=== PATIENT | male | born 1980 | race Caucasian/White ===

== ENCOUNTER 2017-10-27 17:51 | Emergency (ER) | payer OTHER ==
[~2017-10-27] VITALS: Ht 185.4 cm; Wt 77.1 kg
[~2017-10-27 17:51] MED LIST: AMOXICILLIN875 MG PO; IBUPROFEN 800800 MG PO; NOHOMEMEDICATIONS; NORCO 5-325 TA1 EACH PO; TRAMADOL 50 MG50 MG PO
[2017-10-27] MEDS ORDERED: AMOXICILLIN 50500 MG PO (18:12)
[2017-10-27] MEDS ORDERED: ACETAMINOPHEN-1 EAC1 PO (18:17)
[2017-10-27 18:26] VITALS: BP 132/94
== END 2017-10-27 18:27 | disposition home or self-care (01) ==
LOC: M.ERS 17:51
DX: K04.7 Periapical abscess without sinus (principal); F17.210 Nicotine dependence, cigarettes, uncomplicated

== ENCOUNTER 2018-11-20 02:15 | Emergency (ER) | payer OTHER ==
[~2018-11-20] VITALS: Ht 182.9 cm; Wt 71.8 kg
[~2018-11-20 02:15] MED LIST changes: +ACETAMINOPHEN-1 EAC1 PO; +AMOXICILLIN 50500 MG PO
[2018-11-20 02:36] LABS: ABSOLUTE EOSINOPHILS 0.2 thou/uL (0.0-0.7); ABSOLUTE LYMPHOCYTES 3.1 thou/uL (0.8-5.3); ABSOLUTE MONOCYTES 0.7 thou/uL (0.0-1.2); ABSOLUTE NEUTROPHILS 3.1 thou/uL (1.6-8.1); BASOPHILS 0.7 %; EOSINOPHILS 2.5 %; HEMATOCRIT 43.4 % (42.0-52.0); HEMOGLOBIN 14.8 gm/dL (14.0-18.0); MCH 32.2 pg (26.0-34.0); MCHC 34.1 g/dL (28.0-37.0); MCV 94.4 fL (80.0-100.0); MONOCYTES 9.8 %; MPV 7.4 fl. (7.2-11.1); NUCLEATED RBCS 0 /100WBC; PLATELET COUNT* 381 thou/uL (150-400); RDW-CV 13.2 % (10.5-14.5); WBC 7.1 thou/uL (4.0-11.0)
[2018-11-20 02:44] LABS: ANION GAP 9 mmol/L (7-16); BUN 13 mg/dL (7-18); CALCIUM 9.5 mg/dL (8.5-10.1); CHLORIDE 101 mmol/L (98-107); CO2 29 mmol/L (21-32); CREATININE 1.1 mg/dL (0.6-1.3); GLUCOSE 99 mg/dL (70-99); POTASSIUM 4.1 mmol/L (3.5-5.1); SODIUM 139 mmol/L (136-145)
[2018-11-20 02:53] LABS: ALBUMIN 4.1 g/dL (3.4-5.0); ALKALINE PHOSPHATASE 35 U/L (46-116); LIPASE 79 U/L (73-393); MAGNESIUM 1.9 mg/dL (1.8-2.4); SGOT 14 U/L (15-37); SGPT 24 U/L (30-65); TOTAL BILIRUBIN 0.5 mg/dL (<0.1-1.0); TOTAL PROTEIN 7.6 g/dL (6.4-8.2); TROPONIN-I LEVEL <0.06 ng/mL (<0.06)
[2018-11-20] MEDS ORDERED: FLEXERIL PO (03:37)
[2018-11-20 04:01] VITALS: BP 116/79
--- NOTE | 2018-11-20 11:13 | EKG ---
[place] [address] ELECTROCARDIOGRAM REPORT Name: KHOI MURRAY 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 : 1980 Requested By: Ashvin Christianson Order Number: [id number] MD: Ross Paredes Measurements Intervals Qulin Rate: 98 P: 70 NM: 126 QRS: 84 QRSD: 113 T: 27 QT: 347 QTc: 444 Interpretive Statements Sinus rhythm Incomplete right bundle branch block Consider anterior infarct Baseline wander in lead(s) V2 No previous ECG available for comparison Electronically Signed On 11-20-2018 11:13:42 CDT by Ross Paredes [email or web address] <ELECTRONICALLY SIGNED> By: Ross Paredes MD, [facility] 11/20/18 1113 0219 0219 Ross Paredes MD, FACC /EPI
== END 2018-11-20 04:02 | disposition home or self-care (01) ==
LOC: M.ERS 02:15
PROVIDERS: Emergency Medicine Emergency Medical Services
DX: M94.0 Chondrocostal junction syndrome [Tietze] (principal)

== ENCOUNTER 2020-02-25 18:07 | Emergency (ER) | payer OTHER ==
[~2020-02-25] VITALS: Ht 182.9 cm; Wt 90.7 kg
[~2020-02-25 18:07] MED LIST changes: +FLEXERIL PO
[2020-02-25] MEDS ORDERED: HYDROCODON-ACE1 EAC7 PO (19:47)
[2020-02-25] MEDS ORDERED: IBUPROFEN 800800 MG PO (19:47)
[2020-02-25 20:00] VITALS: BP 132/67
== END 2020-02-25 20:00 | disposition home or self-care (01) ==
LOC: M.ERS 18:07
DX: S93.401A Sprain of unspecified ligament of right ankle, initial encounter (principal); W06.XXXA Fall from bed, initial encounter; Y93.89 Activity, other specified; Y92.89 Other specified places as the place of occurrence of the external cause; Y99.8 Other external cause status